=== PATIENT | male | born 1960 | race Caucasian/White ===

== ENCOUNTER 2016-12-16 16:32 | Inpatient (IN) | payer MEDICARE ==
[~2016-12-16] VITALS: Ht 185.4 cm; Wt 114.8 kg
[2016-12-16] MEDS ORDERED: VERAPAMIL ER120 MG PO (19:32)
[2016-12-16] MEDS ORDERED: ACCUPRIL 10 MG10 MG PO (19:32)
[2016-12-16] MEDS ORDERED: VERAPAMIL HCL120 MG PO (19:39)
[2016-12-16 19:48] LABS: HEMOGLOBIN 16.4 gm/dl (14.0-17.5); RED BLOOD COUNT 5.51 M/UL (4.20-5.50); WHITE BLOOD COUNT 10.3 K/UL (4.5-11.0)
[2016-12-16 20:17] LABS: BUN/CREATININE RATIO 24 (0-10)
[2016-12-17 03:45] LABS: BUN/CREATININE RATIO 19 (0-10)
[2016-12-18 05:21] LABS: HEMOGLOBIN 14.5 gm/dl (14.0-17.5)
[2016-12-18 05:26] LABS: RED BLOOD COUNT 4.94 M/UL (4.20-5.50)
[2016-12-18 05:37] LABS: BUN/CREATININE RATIO 21 (0-10)
[2016-12-18] MEDS ORDERED: NOVOLOG 10100 UNITS/ SQ (17:17)
[2016-12-18] MEDS ORDERED: LEVEMIR100 UNIT/1 SQ ×2 (17:19→17:20)
[2016-12-18] MEDS ORDERED: NYSTATIN100000 UNI PO (17:21)
[2016-12-18] MEDS ORDERED: LOPRESSOR 25 MG25 MG PO (17:23)
== END 2016-12-18 17:58 | disposition home or self-care (01) | DRG 638 ==
LOC: CCU 16:32 → PROG CARE 19:16
PROVIDERS: ADMIT Internal Medicine
DX: E11.65 Type 2 diabetes mellitus with hyperglycemia (principal); N17.9 Acute kidney failure, unspecified; B37.0 Candidal stomatitis; E87.1 Hypo-osmolality and hyponatremia; R00.8 Other abnormalities of heart beat; I49.3 Ventricular premature depolarization; I10 Essential (primary) hypertension
CPT/HCPCS: ECHO; 36415; 80048; 80053; 82962; 83036; 83735; 84443; 85027; 85610; 93005; 93306; J1650; J1815; J2405; J7030; J7050